=== PATIENT | female | born 1955 | race Caucasian/White ===

== ENCOUNTER → 2017-09-13 08:05 | Outpatient (CLI) | payer OTHER, SELFPAY ==
--- NOTE | 2017-09-13 | DI.US.S_ITS ---
PROCEDURE: US THYROID INDICATIONS: THYROID NODULE TECHNIQUE: Real-time scanning was performed of the thyroid gland, with image documentation. COMPARISON: [facility], US, BIOPSY LOCALIZATION/ASPIRATION, 03/14/2017, 10:41. [facility], US, THYROID, 02/16/2017, 9:57. FINDINGS: Right: Thyroid lobe measures 5.8 x 1.6 x 1.9 cm, and is heterogeneous in echotexture. Left: Thyroid lobe measures 6.6 x 2.0 x 2.9 cm, and is heterogeneous in echotexture. Isthmus: 3.8 mm thick. Nodule number: One Location: Left mid/inferior lobe Size: 4.9 x 2.5 x 2.9 cm compared to 4.3 x 2.2 x 2.1 cm. Composition: Solid Echogenicity: Isoechoic Shape: wider than tall. Margins: Lobulated Echogenic foci: None Total points: 5 ACR TI-RADS category: 4 Nodule number: 2 Location: Right inferior lobe Size: 1.6 x 0.9 x 1.1 cm compared to 1.3 x 0.9 x 0.8 cm. Composition: Solid Echogenicity: Hypoechoic Shape: wider than tall. Margins: Smooth Echogenic foci: None Total points: 4 ACR TI-RADS category: 4 IMPRESSION: 1. Left and right thyroid nodules, both category 4 as above. Both demonstrate mild interval increase his in size, greater with the left lobe lesion. Recommend FNA of the left lobe lesion given the degree of interval increase in size and continued interval followup of the right lesion as below. ACR TI-RADS definitions and recommendations: TI-RADS 1 (benign): 0 points. FNA not needed. TI-RADS 2 (not suspicious): 2 points. FNA not needed. TI-RADS 3 (mildly suspicious): 3 points. * FNA if 2.5 cm or larger, follow up if 1.5 cm or larger (at 1, 3, and 5 years). TI-RADS 4 (moderately suspicious): 4-6 points. * FNA if 1.5 cm or larger, follow up if 1 cm or larger (at 1, 2, 3, and 5 years). TI-RADS 5 (highly suspicious): 7 points or more. * FNA if 1 cm or larger, follow up if 0.5 cm or larger (every year for 5 years). Dictated by: Cassy Guajardo M.D. on 09/13/2017 at 17:39 Approved by: Cassy Guajardo M.D. on 09/13/2017 at 17:43
== END ==
PROVIDERS: PCP Family Medicine; Visit Provider Family Medicine
DX: E04.2 Nontoxic multinodular goiter (principal)
CPT/HCPCS: 76536

== ENCOUNTER → 2017-10-03 13:34 | Outpatient (CLI) | payer OTHER, SELFPAY ==
--- NOTE | 2017-10-03 | PATH_ITS ---
Note [facility] Accession Number: [id number] TESTS RESULT FLAG UNITS REF RANGE LAB Clinician Provided Cytology Information No. of containers..01 ThinPrep Vial No. of containers..10 Previously Prepared Cytology Slide THYROID NODULE DIAGNOSIS: THYROID NODULE NEGATIVE FOR MALIGNANT CELLS. [place] CATEGORY II. SPECIMEN CONSISTS OF ABUNDANT BENIGN FOLLICULAR CELLS, HEMOSIDERIN-LADEN MACROPHAGES, SCANT COLLOID AND BLOOD. THE PATTERN IS CONSISTENT WITH ADENOMATOID NODULE. Pathologist ICD10: 02 E04.1 Payam Aviles MD, Pathologist NPI- [id number] Jaycee Morse, Faculty Criminal Justice ([facility]) 01 30 CC, PINK, CLEAR Also, received 5 alcohol fixed, 5 quick stained slides, and 1 RNA vial. /HK FLAG LEGEND: L-Low Normal,H-High Normal,LL-Alert Low,HH-Alert High <-Panic Low,>-Panic High,A-Abnormal,AA-Critical Abnormal Performed at: 01 =Z [facility] [address], [place] [address] Ric Wilkerson MD, 02 [facility] [address] [place] [id number] Mauricio Mims MD, Performed at: 01 [facility] [address], [place], [place] [id number] MD Ric Wilkerson MD Phone: [phone]
--- NOTE | 2017-10-03 | DI.US.S_ITS ---
PROCEDURE: US FINE NEEDLE ASPIRATION INDICATIONS: LEFT THYROID NODULE TECHNIQUE: The indications, alternatives, benefits, risks, and complications of the procedure were explained to the patient. Written informed consent was obtained and placed in the chart. The thyroid region was examined sonographically and a site was chosen for ultrasound guided percutaneous sampling. The skin was prepared and draped in the usual fashion, and anesthetized with 1% lidocaine infiltrated from the skin down to the thyroid gland. Multiple passes were then performed, with contents emptied into an appropriate pathology specimen container. A bandage was applied to the area of access at completion of the study. COMPARISON: None. FINDINGS: Location(s) of lesion(s) sampled: Left thyroid nodule [place]: 22 and 25 gauge hypodermic needles. Number of passes: 6, 4 with 25 gauge and 2 with 22 gauge Medications: 1% lidocaine for local anaesthesia. Complications: None. IMPRESSION: Successful ultrasound-guided thyroid nodule fine needle aspiration, with cytology results pending. Please see chart below for management recommendations based on cytology results. [facility] ReportingRecommendationsNon-diagnostic* Repeat US-guided FNA, with on-site cytology evaluation if possible. * Repeated non-diagnostic nodules without high suspicion US features: close observation vs surgical consult. * Consider surgery if nodule has high suspicion US features, grows >20% in 2 dimensions on followup, or patient has clinical risk factors for malignancy. Benign* If nodule has high suspicion US features: repeat US and FNA within 12 months. * If nodule has low to intermediate suspicion US features: repeat US at 12-24 months. If nodule grows (20% increase in at least 2 dimensions, with minimal increase of 2 mm or >50% change in volume), or development of new suspicious US features, then repeat FNA or continue followup. * If nodule has very low suspicion US features: followup US at >24 months. Atypia of undetermined significance, follicular lesion of undetermined significanceRepeat FNA, molecular testing, followup US, or surgical consult.Follicular neoplasm, suspicious for follicular neoplasmSurgical consult; also consider molecular testing. Suspicious for malignancySurgical consult.MalignantSurgical consult. Dictated by: Dami Cheema M.D. on 10/03/2017 at 15:26 Approved by: Dami Cheema M.D. on 10/03/2017 at 15:27
== END ==
PROVIDERS: PCP Family Medicine; Visit Provider Family Medicine
DX: E04.1 Nontoxic single thyroid nodule (principal)
CPT/HCPCS: 10022; 76942

== ENCOUNTER → 2018-04-25 15:52 | Outpatient (CLI) | payer OTHER, SELFPAY ==
--- NOTE | 2018-04-25 | DI.US.S_ITS ---
PROCEDURE: US THYROID INDICATIONS: THYROID NODULE TECHNIQUE: Real-time scanning was performed of the thyroid gland, with image documentation. COMPARISON: [facility], US, THYROID, 02/16/2017, 9:57. [facility], US, US THYROID, 09/13/2017, 8:11. FINDINGS: Right: Thyroid lobe measures 4.5 x 1.7 x 1.4 cm, and is homogeneous in echotexture. Left: Thyroid lobe measures 4.8 x 2.8 x 2.7 cm, and is homogenous in echotexture. Isthmus: 3 mm thick. Nodule number: 1 Location: Left mid lobe Size: 4.8 x 2.3 x 2.7 cm compared to 4.9 x 2.5 x 2.9 cm. Composition: Solid Echogenicity: Isoechoic Shape: wider than tall. Margins: Loculated Echogenic foci: None Total points: 5 ACR TI-RADS category: 4 Nodule number: 2 Location: Right inferior Size: 1.8 x 1.2 x 1.2 cm compared to 1.6 x 0.9 1.1 cm. Composition: Solid Echogenicity: Isoechoic Shape: wider than tall. Margins: Loculated Echogenic foci: None Total points: 5 ACR TI-RADS category: 4 Nodule number: 3 Location: Right inferior Size: 0.7 x 0.6 x 0.5 cm. Composition: Solid Echogenicity: Hypoechoic Shape: wider than tall. Margins: Ill-defined Echogenic foci: Macrocalcifications. Total points: 5 ACR TI-RADS category: 4 IMPRESSION: 1. Lesions 1 and 2 are stable compared to prior exam in 2017 and 2018. Continued interval followup at the 3 and 5 year interval. 2. New right inferior lobe nodule, below the threshold of size for interval followup as below. ACR TI-RADS definitions and recommendations: TI-RADS 1 (benign): 0 points. FNA not needed. TI-RADS 2 (not suspicious): 2 points. FNA not needed. TI-RADS 3 (mildly suspicious): 3 points. * FNA if 2.5 cm or larger, follow up if 1.5 cm or larger (at 1, 3, and 5 years). TI-RADS 4 (moderately suspicious): 4-6 points. * FNA if 1.5 cm or larger, follow up if 1 cm or larger (at 1, 2, 3, and 5 years). TI-RADS 5 (highly suspicious): 7 points or more. * FNA if 1 cm or larger, follow up if 0.5 cm or larger (every year for 5 years). Dictated by: Cassy Guajardo M.D. on 04/25/2018 at 17:50 Approved by: Cassy Guajardo M.D. on 04/25/2018 at 17:55
== END ==
PROVIDERS: PCP Family Medicine; Visit Provider Family Medicine
DX: E04.2 Nontoxic multinodular goiter (principal)
CPT/HCPCS: 76536

== ENCOUNTER → 2018-05-10 16:24 | Outpatient (REF) | payer OTHER, SELFPAY | LOC: LAB 16:24 | PROVIDERS: PCP Family Medicine; Visit Provider Nurse Practitioner Family | DX: R05 Cough (principal); R50.9 Fever, unspecified | CPT/HCPCS: 87400 ==

== ENCOUNTER → 2018-05-19 14:29 | Outpatient (CLI) | payer OTHER, SELFPAY ==
--- NOTE | 2018-05-19 | DI.RAD.S_ITS ---
PROCEDURE: XR CHEST 2V INDICATIONS: PNEUMONIA TECHNIQUE: 2 views of the chest were acquired. COMPARISON: [facility], , CHEST 2 VIEW, 02/04/2010, 11:16. FINDINGS: Surgical changes and devices: None. Lungs and pleura: No acute consolidation. Scattered subsegmental atelectasis and/or scarring. No pleural effusions or pneumothorax. Lung volumes are low Mediastinum: Mediastinal contours are normal. Heart size is normal. Bones and chest wall: No suspicious bony abnormalities. Soft tissues appear unremarkable. IMPRESSION: No acute disease Dictated by: Quan Shah M.D. on 05/19/2018 at 16:28 Approved by: Quan Shah M.D. on 05/19/2018 at 16:29
== END ==
PROVIDERS: PCP Family Medicine; Visit Provider Nurse Practitioner Family
DX: J18.9 Pneumonia, unspecified organism (principal)
CPT/HCPCS: 71046

== ENCOUNTER → 2019-02-15 07:57 | Outpatient (CLI) | payer OTHER, SELFPAY ==
--- NOTE | 2019-02-15 | DI.MG.S_ITS ---
BILATERAL DIGITAL SCREENING MAMMOGRAM 3D/2D WITH CAD: 02/15/2019 CLINICAL: Routine screening. Family history of breast cancer. Comparison is made to exams dated: 12/09/2016 mammogram, 10/06/2015 mammogram, 10/04/2014 mammogram, and 10/03/2013 mammogram - [facility]. There are scattered fibroglandular elements in both breasts. Current study was also evaluated with a Computer Aided Detection (CAD) system. There are benign calcifications in the left breast. No significant masses, calcifications, or other findings are seen in either breast. There has been no significant interval change. IMPRESSION: There is no mammographic evidence of malignancy. A 1 year screening mammogram is recommended. This exam was interpreted at Station ID: [id number]. NOTE: For mammograms, a report in lay terms will be sent to the patient. Approximately 15% of breast malignancies will not be visualized mammographically. In the management of a palpable breast mass, a negative mammogram must not discourage biopsy of a clinically suspicious lesion. Electronically Signed By: Jeffry johnston/agus:02/15/2019 15:53:34 letter sent: Normal Exam ACR BI-RADS Category 2: Benign Finding(s) 3342F
== END ==
PROVIDERS: PCP Family Medicine; Visit Provider Family Medicine
DX: Z12.31 Encounter for screening mammogram for malignant neoplasm of breast (principal); Z80.3 Family history of malignant neoplasm of breast
CPT/HCPCS: 77063; 77067

== ENCOUNTER → 2020-03-11 17:03 | Outpatient (CLI) | payer BC, SELFPAY ==
--- NOTE | 2020-03-11 | DI.MG.S_ITS ---
BILATERAL DIGITAL SCREENING MAMMOGRAM 3D/2D WITH CAD: 03/11/2020 CLINICAL: Routine screening. Family history of breast cancer. Comparison is made to exams dated: 02/15/2019 mammogram, 12/09/2016 mammogram, 10/06/2015 mammogram, 10/04/2014 mammogram, and 10/03/2013 mammogram - [facility]. There are scattered fibroglandular elements in both breasts. Current study was also evaluated with a Computer Aided Detection (CAD) system. There are benign calcifications in the left breast. No significant masses, calcifications, or other findings are seen in either breast. There has been no significant interval change. IMPRESSION: BENIGN There is no mammographic evidence of malignancy. A 1 year screening mammogram is recommended. This exam was interpreted at Station ID: [id number]. NOTE: For mammograms, a report in lay terms will be sent to the patient. Approximately 15% of breast malignancies will not be visualized mammographically. In the management of a palpable breast mass, a negative mammogram must not discourage biopsy of a clinically suspicious lesion. Electronically Signed By: Cory luther/agus:03/12/2020 08:18:05 letter sent: Normal Exam ACR BI-RADS Category 2: Benign Finding(s) 3342F
== END ==
PROVIDERS: Referring Provider Family Medicine; Visit Provider Family Medicine
DX: Z12.31 Encounter for screening mammogram for malignant neoplasm of breast (principal); Z80.3 Family history of malignant neoplasm of breast
CPT/HCPCS: 77063; 77067

== ENCOUNTER → 2021-03-17 15:36 | Outpatient (CLI) | payer MEDICARE, OTHER, SELFPAY ==
--- NOTE | 2021-03-17 | DI.MG.S_ITS ---
BILATERAL DIGITAL SCREENING MAMMOGRAM 3D/2D WITH CAD: 03/17/2021 CLINICAL: Routine screening. Family history of breast cancer. Comparison is made to exams dated: 03/11/2020 mammogram and 02/15/2019 mammogram - [facility]. There are scattered fibroglandular elements in both breasts. Current study was also evaluated with a Computer Aided Detection (CAD) system. There are benign calcifications in both breasts. No significant masses, calcifications, or other findings are seen in either breast. There has been no significant interval change. IMPRESSION: BENIGN There is no mammographic evidence of malignancy. A 1 year screening mammogram is recommended. This exam was interpreted at Station ID: [id number]. NOTE: For mammograms, a report in lay terms will be sent to the patient. Approximately 15% of breast malignancies will not be visualized mammographically. In the management of a palpable breast mass, a negative mammogram must not discourage biopsy of a clinically suspicious lesion. Electronically Signed By: Cory luther/agus:03/24/2021 17:15:04 letter sent: Normal Exam ACR BI-RADS Category 2: Benign Finding(s) 3342F
== END ==
PROVIDERS: PCP Family Medicine; Referring Provider Family Medicine; Visit Provider Family Medicine
DX: Z12.31 Encounter for screening mammogram for malignant neoplasm of breast (principal); Z80.3 Family history of malignant neoplasm of breast
CPT/HCPCS: 77063; 77067

== ENCOUNTER → 2022-01-18 14:07 | Outpatient (CLI) | payer MEDICARE, OTHER, SELFPAY | PROVIDERS: PCP Family Medicine; Referring Provider Family Medicine; Visit Provider Family Medicine | DX: Z78.0 Asymptomatic menopausal state (principal); Z13.820 Encounter for screening for osteoporosis | CPT/HCPCS: 77080; 77081 ==

== ENCOUNTER → 2022-04-29 11:48 | Outpatient (CLI) | payer MEDICARE, OTHER, SELFPAY ==
--- NOTE | 2022-04-29 | DI.MG.S_ITS ---
BILATERAL DIGITAL SCREENING MAMMOGRAM 3D/2D WITH CAD: 04/29/2022 CLINICAL: Routine screening. Family history of breast cancer. Comparison is made to exams dated: 03/17/2021 mammogram, 03/11/2020 mammogram, and 02/15/[address] mamm[address] - [facility]. There are scattered areas of fibroglandular density in both breasts (category b / 25%-50% glandular tissue). Current study was also evaluated with a Computer Aided Detection (CAD) system. There are benign calcifications in both breasts. No significant masses, calcifications, or other findings are seen in either breast. There has been no significant interval change. IMPRESSION: BENIGN There is no mammographic evidence of malignancy. A 1 year screening mammogram is recommended. Based on the Tyrer Cuzick model (a risk assessment model) the patient's lifetime risk is 8.7% and her 10 year risk is 4.4%. According to the ACR, ACS, and NCCN guidelines, an annual breast MRI exam along with mammogram is recommended if the patient's lifetime risk is 20% or greater. This exam was interpreted at Station ID: [id number]. NOTE: For mammograms, a report in lay terms will be sent to the patient. Approximately 15% of breast malignancies will not be visualized mammographically. In the management of a palpable breast mass, a negative mammogram must not discourage biopsy of a clinically suspicious lesion. Electronically Signed By: Sang Perry M.D., jr/agus:04/29/2022 15:45:15 letter sent: Normal Exam ACR BI-RADS Category 2: Benign Finding(s) 3342F
== END ==
PROVIDERS: PCP Family Medicine; Referring Provider Family Medicine; Visit Provider Family Medicine
DX: Z12.31 Encounter for screening mammogram for malignant neoplasm of breast (principal); Z80.3 Family history of malignant neoplasm of breast
CPT/HCPCS: 77063; 77067

== ENCOUNTER → 2023-06-09 14:33 | Outpatient (CLI) | payer MEDICARE, OTHER, SELFPAY ==
--- NOTE | 2023-06-09 14:35 | DI.RAD.S_ITS ---
PROCEDURE: XR CHEST 2V INDICATIONS: Acute cough TECHNIQUE: 2 views of the chest were acquired. COMPARISON: [facility], [facility]ANNE, XR CHEST 2V, 05/19/2018, 14:43. [facility], , CHEST 2 VIEW, 02/04/2010, 11:16. FINDINGS: Surgical changes and devices: None. Lungs and pleura: Lungs are clear. No pleural effusions or pneumothorax. Mediastinum: Mediastinal contours are normal. Heart size is normal. Bones and chest wall: No suspicious bony abnormalities. Soft tissues appear unremarkable. IMPRESSION: No acute cardiopulmonary abnormality is seen. Dictated by: Cory Kuhn M.D. on 06/09/2023 at 19:39 Approved by: Cory Kuhn M.D. on 06/09/2023 at 19:41
== END ==
PROVIDERS: PCP Family Medicine; Referring Provider Family Medicine; Visit Provider Family Medicine
DX: R05.1 Acute cough (principal); R06.02 Shortness of breath
CPT/HCPCS: 71046

== ENCOUNTER → 2024-04-18 10:42 | Outpatient (CLI) | payer MEDICARE, OTHER, SELFPAY ==
--- NOTE | 2024-04-18 10:46 | DI.MRI.S_ITS ---
PROCEDURE: MR LUMBAR SPINE WO CON INDICATIONS: bilateral sciatica TECHNIQUE: Noncontrast sagittal T1 spin echo and T2 fast echo, sagittal STIR, and T2 fast spin echo through the lumbar spine. In cases with scoliosis, additional coronal T2 fast spin echo may be performed. COMPARISON: None. FINDINGS: Image quality: Excellent. Alignment and Curvature: Mild anterolisthesis of L2 on L3 and L3 on L4. 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 Bone Marrow: Mild degenerative endplate changes, most pronounced L2-L3 Marrow is of normal overall signal. No acute vertebral body compression fractures. Spinal Cord: Conus medullaris terminates at the L1 level. Visualized cord demonstrates normal signal and size. Paraspinous Soft Tissues: No paravertebral masses. T12-L1: Normal appearance. L1-L2: Disc desiccation and mild diffuse disc bulge. Facet arthropathy. Mild central canal stenosis. Mild bilateral neural foraminal stenosis. L2-L3: Disc desiccation and moderate disc height loss. Diffuse disc bulge. Facet arthropathy and thickening of ligamentum flavum. Epidural lipomatosis. Moderate to severe central canal stenosis. Mild right and moderate left neural foraminal stenosis. L3-L4: Disc desiccation and mild height loss. Diffuse disc bulge. Facet arthropathy and thickening of ligamentum flavum. Moderate to severe central canal stenosis. Moderate bilateral neural foraminal stenosis. L4-L5: Disc desiccation and moderate height loss. Diffuse disc bulge with small superimposed central disc extrusion. Posterior annular tear. Facet arthropathy. Mild central canal stenosis. Moderate to severe right and mild left neural foraminal stenosis. L5-S1: Transitional level without central canal or neural foraminal stenosis. IMPRESSION: 1. Multilevel degenerative changes of the lumbar spine as described above. 2. There is moderate to severe central canal stenosis at L2-L3 and L3-L4. 3. Moderate to severe right neural foraminal stenosis at L4-5. Multilevel mild and moderate neural foraminal stenosis at other levels. 4. 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 Recommend correlation with plain films prior to any intervention. Dictated by: Fabio Oconnor M.D. on 04/18/2024 at 16:35 Approved by: Fabio Oconnor M.D. on 04/18/2024 at 16:39
== END ==
PROVIDERS: PCP Family Medicine; Referring Provider Family Medicine; Visit Provider Family Medicine
DX: M51.16 Intervertebral disc disorders with radiculopathy, lumbar region (principal); M51.17 Intervertebral disc disorders with radiculopathy, lumbosacral region; M47.26 Other spondylosis with radiculopathy, lumbar region; M47.27 Other spondylosis with radiculopathy, lumbosacral region; M48.061 Spinal stenosis, lumbar region without neurogenic claudication; M48.07 Spinal stenosis, lumbosacral region
CPT/HCPCS: 72148

== ENCOUNTER → 2024-07-05 15:03 | Outpatient (CLI) | payer MEDICARE, OTHER, SELFPAY ==
--- NOTE | 2024-07-05 15:04 | DI.MG.S_ITS ---
MM screening mammo BI: 07/05/2024. BI-RADS: 1 CLINICAL: 69-year old female for bilateral screening mammogram. Tyrer-Cuzick lifetime risk of 6.6%. No personal or first-degree family history of breast cancer. Current reported family history of breast cancer: maternal uncle's daughter. PRIOR EXAMS 04/29/2022, 03/17/2021, 03/11/2020, 02/15/2019. MAMMOGRAPHY TECHNIQUE: 2D and 3D (tomosynthesis) digital mammographic views obtained, with additional images as needed for full coverage. Current study was also evaluated with a Computer Aided Detection (CAD) system. DENSITY B. There are scattered areas of fibroglandular density. MAMMOGRAPHY FINDINGS Bilateral: No suspicious mass, asymmetry, microcalcification, or other abnormality seen. IMPRESSION: * No evidence of malignancy. RECOMMENDATIONS Bilateral * Annual screening mammography. OVERALL ASSESSMENT CATEGORY BI-RADS-1: Negative. The [employer] recommends annual screening mammography beginning at age 40 for women with average risk of breast cancer. ELECTRONICALLY SIGNED: Cory Kuhn M.D. on 07/05/2024 at 04:15:28 PM PT Interpreting Station ID: [id number]
== END ==
PROVIDERS: PCP Family Medicine; Referring Provider Family Medicine; Visit Provider Family Medicine
DX: Z12.31 Encounter for screening mammogram for malignant neoplasm of breast (principal); Z80.3 Family history of malignant neoplasm of breast
CPT/HCPCS: 77063; 77067